=== PATIENT | male | born 1960 | race Caucasian/White ===

== ENCOUNTER 2018-04-26 09:57 | Day surgery (SDC) | payer BC ==
[2018-04-24 09:45] VITALS: BMI 25.5
[~2018-04-26 09:57] MED LIST: LACTATED RINGERS 1,000 ML IV SCH; LIDOCAINE 1% 20 ML VIAL (10MG/ML) FOR IV START INTRADERMA PRN
[2018-04-26 10:11] VITALS: RESP 16; TEMP 98.2
[2018-04-26] MEDS ORDERED: PROPOFOL 10 MG/ML 20 ML VIAL IV ONE (10:34)
--- NOTE | 2018-04-26 10:38 | P.GSHP ---
History of Present Illness H&P Date: 04/26/18 Chief Complaint: GI bleed This is a 57-year-old male with a previous history of GI bleed. Patient presents today for colonoscopy. Patient states he had no further bleeding in his bowel prep. Past Medical History Past Medical History: GERD/Reflux Additional Past Medical History / Comment(s): rectal bleeding intermittently for couple weeks History of Any Multi-Drug Resistant Organisms: None Reported Past Surgical History: Hernia Repair Additional Past Surgical History / Comment(s): nasal surgery as child Past Anesthesia/Blood Transfusion Reactions: No Reported Reaction Smoking Status: Never smoker - Past Family History Mother Family Medical History: No Reported History Medications and Allergies Home Medications Medication Instructions Recorded Confirmed Type Cyanocobalamin [Vitamin B-12] 500 mcg PO DAILY 04/24/18 04/26/18 History Zinc 50 mg PO DAILY 04/24/18 04/24/18 History Allergies Allergy/AdvReac Type Severity Reaction Status Date / Time Penicillins Allergy Unknown Verified 04/26/18 10:09 Childhood Surgical - Exam Vital Signs Temp Pulse Resp BP Pulse Ox 98.2 F 64 16 127/89 98 04/26/18 10:10 04/26/18 10:10 04/26/18 10:10 04/26/18 10:10 04/26/18 10:10 - General well developed, no distress - Eyes PERRL - ENT normal pinna - Neck no masses - Respiratory normal expansion - Cardiovascular Rhythm: regular - Abdomen Abdomen: soft, non tender Assessment and Plan Assessment: GI bleed. We'll perform colonoscopy.
--- NOTE | 2018-04-26 10:56 | P.OP ---
Date of Procedure: 04/26/18 Preoperative Diagnosis: GI bleed Postoperative Diagnosis: Internal hemorrhoids No evidence of GI bleed Procedure(s) Performed: Colonoscopy Anesthesia: MAC Surgeon: Lorenzo Ravi Pathology: none sent Condition: stable Disposition: PACU Description of Procedure: The patient's placed on the endoscopy table in the lateral position. He received IV sedation. Digital rectal exam performed which revealed internal hemorrhoids. The flexible colonoscope was then placed patient anus and passed throughout the entire colon. The ileocecal valve was visualized. The bowels quite tortuous. Scope was withdrawn. The remainder the ascending colon, transverse colon and descending colon appeared normal. The scope was brought back and sigmoid colon was normal. Scope was back the rectum and this was normal. There no evidence of any blood in the colon. Scope was then withdrawn through the anus and there were internal hemorrhoids seen. There is no active bleeding seen. Patient's colonoscopy was normal except for internal hemorrhoids. It was presumed that his rectal bleeding was from internal hemorrhoids.
[2018-04-26 11:50] VITALS: BP 133/87; PULSE 58
== END 2018-04-26 12:06 | disposition home or self-care (01) ==
LOC: ORWHC2ENDO 09:57
PROVIDERS: ATTEND Surgery
DX: K64.8 Other hemorrhoids (principal); K21.9 Gastro-esophageal reflux disease without esophagitis; Z88.0 Allergy status to penicillin
CPT/HCPCS: 45378; J2704